=== PATIENT | male | born 1945 | race Caucasian/White ===

== ENCOUNTER 2017-08-01 10:01 | Inpatient (IN) ==
[2017-08-01] MEDS ORDERED: CeFAZolin Syr 2,000MG/20 ML 2,000 MG/20 ML SYRINGE IVPB ONE (10:17)
[2017-08-01] MEDS ORDERED: Plasma-Lyte A (PH 7.4) 1,000 ML IVC SCH (10:30)
[2017-08-01] MEDS ORDERED: *HR* Propofol 200 MG/20 ML VIAL IVP ONE (11:24)
[2017-08-01] MEDS ORDERED: *HR* FentaNYL (PF) 100 MCG/2 ML VIAL ONE (11:24)
[2017-08-01] MEDS ORDERED: Ondansetron 4 MG/2 ML VIAL ONE (11:24)
[2017-08-01] MEDS ORDERED: *HR* Succinylcholine 200 MG/10 ML VIAL IVP ONE (11:24)
[2017-08-01] MEDS ORDERED: Lidocaine -MPF 2% 2 ML VIAL ONE (11:24)
--- NOTE | 2017-08-01 11:29 | Anesthesia Evaluation PreOp ---
Date of Encounter: 08/01/17 Time of Encounter: 11:27 - Past History Planned Operation: R total shoulder replacement Cardiac History: HTN, Hyperlipidemia, Cardiac Stent (CAD s/p stent 2006) Pulmonary History: LÓPEZ Dx CASTING MACHINE SET UP OPERATOR History: Denies Any Significant HX Other Medical History: Diabetes Type II Anesthesia History: No Prior Anesthetic Complications, Past Anesthesia Alcohol Use: rarely Drug use: none Medications and Allergies Allopurinol [Zyloprim 300 MG] 1 mg PO DAILY 08/01/17 [History] Amlodipine Besylate/Benazepril [Lotrel 10-20 mg Capsule] 1 each PO DAILY [History] Cyanocobalamin (Vitamin B-12) [Vitamin B12] 100 mcg PO DAILY 08/01/17 [History] Imipramine HCl [Tofranil] 25 mg PO HS 08/01/17 [History] Latanoprost [Xalatan] 1 drop LEFT EYE DAILY 08/01/17 [History] Loratadine [Claritin] 10 mg PO DAILY 08/01/17 [History] Loratadine [Claritin] 10 mg PO DAILY 08/01/17 [History] Metformin HCl [Fortamet] 1,000 mg PO BID 08/01/17 [History] Multivit-Min/FA/Lycopen/Lutein [Adults 50+ Multivitamin Tablet] 1 each PO DAILY 08/01/17 [History] Naproxen Sodium [Aleve] 220 mg PO 08/01/17 [History] Potassium Chloride [Klor-Con] 20 meq PO DAILY 08/01/17 [History] Triamterene/HCTZ 37.5/25mg [Dyazide] 1 tab PO DAILY 08/01/17 [History] 3 Allergy/AdvReac Type Severity Reaction Status Date / Time atorvastatin Allergy See Verified 08/01/17 10:23 Comments ezetimibe [From Zetia] Allergy See Verified 08/01/17 10:23 Comments - Meds/Allergy Pre-op Review Medications Reviewed: Yes Allergies Reviewed: Yes Beta Blockers on Current Med List: No Anesthesia Results - Labs Laboratory Tests 07/22/17 07/22/17 07/22/17 12:30 12:30 12:30 WBC 6.2 Hgb 13.6 Hct 41.3 Plt Count 242 PT 11.2 INR 1.0 APTT 30.5 Sodium 138 Potassium 4.4 Chloride 105 Carbon Dioxide 22 BUN 27 H Creatinine 1.02 Est Mean Plasma Glucose Hemoglobin A1c 07/22/17 12:30 WBC Hgb Hct Plt Count PT INR APTT Sodium Potassium Chloride Carbon Dioxide BUN Creatinine Est Mean Plasma Glucose 126 Hemoglobin A1c 6.0 H - Imaging EKG: report reviewed (SR) Anesthesia Exam O2 Sat Height 1.74 m Height 1.74 m Weight 102.058 kg Weight 102.058 kg O2 Sat by Pulse Oximetry 96 Vital Signs Temp Pulse Resp BP Pulse Ox 98.6 F 88 20 137/84 96 08/01/17 10:28 08/01/17 10:28 08/01/17 10:28 08/01/17 10:28 08/01/17 10:28 Blood glucose: 131 Height: 1.74m Weight: 102kg NPO (# of Hours): >8 - HEENT Pupil (Motor): Pupils equal, EOMI Denture Type: Upper: Complete Oral Opening: Greater than 3 - CASTING MACHINE SET UP OPERATOR LOC: Oriented CASTING MACHINE SET UP OPERATOR Motor: Normal RUE, Normal LUE, Normal RLE, Normal LLE, Normal Face CASTING MACHINE SET UP OPERATOR Sensory: Normal: RUE, LUE, RLE, LLE, Face - Cardiac Rhythm: Regular - Pulmonary Breath Sounds: bilateral Clear Respiratory Effort: Symmetrical Anesthesia Assess/Plan ASA Score: 3 Modified Jhoan Scale for Level of Consciousness: Cooperative, oriented, and tranquil Anesthetic Plan: General (r/b/a discussed, questions answered, consent obtained) , Regional (R brachial plexus) Monitoring Plan: Standard Monitors Recovery Plan: PACU
--- NOTE | 2017-08-01 12:11 | History & Physical Report ---
Date of Encounter: 08/01/17 Time of Encounter: 12:11 24 Hour HP Update - Instructions Instructions: If the History and Physical is less than 30 days old and was completed prior to A.M. admission and or procedure and has NOT been updated on calendar day of procedure please complete this update prior to performing procedure. - Update Patient reports changes in Medical Condition: No Changes in examination, assessment, or condition: No Changes in Medication: No Preop tests/diagnostics Reviewed: Yes Surgery Remains Indicated: Yes Consent for Planned Operative Procedure(s) Verified: Yes - Pre-Operative Checklist Preoperative Checklist Indicated: No Prophylactic Antibiotic Ordered: Yes Is VTE Prophylaxis Indicated?: Yes
--- NOTE | 2017-08-01 12:22 | Discharge Summary ---
Date of Encounter: 08/01/17 - Discharge Diagnosis (1) Hypertension Priority: Secondary Status: Chronic Qualifiers: Hypertension type: unspecified Qualified Code(s): I10 - Essential (primary ) hypertension (2) Hyperlipidemia Priority: Secondary Status: Chronic Qualifiers: Hyperlipidemia type: unspecified Qualified Code(s): E78.5 - Hyperlipidemia , unspecified (3) Coronary artery disease Priority: Secondary Status: Chronic Qualifiers: Coronary Disease-Associated Artery/Lesion type: unspecified vessel or lesion type [place] vs. transplanted heart: [place] heart Associated angina: angina presence unspecified Qualified Code(s): I25.10 - Atherosclerotic heart disease of [place] coronary artery without angina pectoris (4) Obstructive sleep apnea Priority: Secondary Status: Chronic (5) Obesity (BMI 30.0-34.9) Priority: Secondary Status: Chronic (6) Rotator cuff tear arthropathy of right shoulder Priority: Primary Status: Chronic (7) Status post total replacement of right shoulder Priority: Primary Status: Acute (8) Type 2 diabetes mellitus Status: Acute Qualifiers: Diabetes mellitus complication status: without complication Diabetes mellitus intermediate manager insulin use: unspecified intermediate manager insulin use status Qualified Code(s): E11.9 - Type 2 diabetes mellitus without complications - Discharge Medications Home Medications: Allopurinol [Zyloprim 300 MG] 1 mg PO DAILY 08/01/17 [History] Amlodipine Besylate/Benazepril [Lotrel 10-20 mg Capsule] 1 each PO DAILY [History] Cyanocobalamin (Vitamin B-12) [Vitamin B12] 100 mcg PO DAILY 08/01/17 [History] Imipramine HCl [Tofranil] 25 mg PO HS 08/01/17 [History] Latanoprost [Xalatan] 1 drop LEFT EYE DAILY 08/01/17 [History] Loratadine [Claritin] 10 mg PO DAILY 08/01/17 [History] Loratadine [Claritin] 10 mg PO DAILY 08/01/17 [History] Metformin HCl [Fortamet] 1,000 mg PO BID 08/01/17 [History] Multivit-Min/FA/Lycopen/Lutein [Adults 50+ Multivitamin Tablet] 1 each PO DAILY 08/01/17 [History] Naproxen Sodium [Aleve] 220 mg PO 08/01/17 [History] Potassium Chloride [Klor-Con] 20 meq PO DAILY 08/01/17 [History] Triamterene/HCTZ 37.5/25mg [Dyazide] 1 tab PO DAILY 08/01/17 [History] Allergies/Adverse Reactions: 3 Allergy/AdvReac Type Severity Reaction Status Date / Time atorvastatin Allergy See Verified 08/01/17 10:23 Comments ezetimibe [From Zetia] Allergy See Verified 08/01/17 10:23 Comments Primary care physician: Amber Mccallum, - Discharge Instructions Follow Up With: Amber Mccallum MD [Primary Care Provider] - - Hospital Course Hospital course: Mr. Madrigal is a 71 year old male - Time Spent with Patient Total time spent providing and/or coordinating discharge services:
[2017-08-01] MEDS ORDERED: ROPIVACAINE HCL/PF 0.5% 30 ML VIAL ONE (12:33)
[2017-08-01] MEDS ORDERED: *HR* Midazolam HCl 2 MG/2 ML VIAL ONE (12:35)
[2017-08-01] MEDS ORDERED: Dexamethasone 4 MG/ML VIAL ONE (12:49)
[2017-08-01] MEDS ORDERED: *HR* Labetalol 20 MG/4 ML SYRINGE IVP PRN (13:06)
[2017-08-01] MEDS ORDERED: *HR* Promethazine 25 MG/ML VIAL IVP PRN (13:06)
[2017-08-01] MEDS ORDERED: *HR* HYDROmorphone (PF) 1 MG/ML SYRINGE IVP PRN ×2 (13:06→15:28)
--- NOTE | 2017-08-01 13:12 | Anesthesia Procedures ---
Date of Encounter: 08/01/17 Time of Encounter: 13:11 Procedures: Anesthesia - Nerve Block Procedure Date: 08/01/17 Time: 12:42 Allergies/Adv Reactions: Allergies Allergy/AdvReac Type Severity Reaction Status Date / Time atorvastatin Allergy See Verified 08/01/17 10:23 Comments ezetimibe [From Zetia] Allergy See Verified 08/01/17 10:23 Comments Pre-op Diagnosis: See surgical consent Surgical Procedure: R total shoulder supraclavicular nn bloc Checklist: Correct Patient Identifier, Correct procedure, History checked Correct side: Right Blood Thinner: No Monitor Applied: EKG, BP, Pulse Oximetry, Other Supplemental Oxygen via Nasal Cannula (L/min): 2 Sedation: Versed (mg): 2 Indication: Post Op Analgesia (per surgeon's request) Pre-op Neuro Deficits: No Block Type: Supraclavicular Catheter placed: No Sterile Technique: Yes Ultrasound used: Yes Anatomy identified: Yes Visual spread of Local: Yes Neuro Stimulation: No Blood on Needle Aspiration: No Smooth Injection of Local: Yes Pain with Injection of Local: No Prep: Chlorhexadine Needle: 22 x 50 mm Stimuplex Local: Ropivacaine (0.5%) Volume (cc): 30 Number of Attempts: 1 Complications: None/effective block Vitals: see nursing notes
--- NOTE | 2017-08-01 14:08 | Orthopedic Operative Note ---
Date of procedure: 08/01/17 Pre-op diagnosis: Right shoulder cuff tear arthropathy Post-op diagnosis: same Procedure: Procedure: Total Shoulder Replacment Reverse, right Estimated blood loss: 200 cc Hardware: Metal and polyethylene replacement: Arthrex large glenoid baseplate, 2 4.5 screws. 1 6.5 screw, 42+4 glenosphere, 10 humeral stem, poly 3 insert a 12 metal Exam Under anesthesia: Full motion no instability Procedural Notes: Irreparable tear supraspinatus tendon grade 4 arthritic changes humeral head glenoid socket. Operative procedure: The patient was brought to the operating room and placed on the operating room table. After general anesthesia was administered the operative shoulder was examined. Findings were noted. The patient was placed in the modified beachchair position. All pressure points were padded appropriately. And the head was stabilized in the neutral position. The operative extremity was prepped and draped in the sterile surgical fashion. The patient received IV antibiotics prior to skin incision. A standard deltopectoral approach was made to the operative shoulder. Incision was made to the skin and subcutaneous tissue,hemo stasis was obtained with Bovie cautery. Using careful blunt dissection the cephalic vein was identified and mobilized medially. The deltopectoral interval was developed and the clavipectoral fascia was incised. The subscap was released off the lesser tuberosity and tagged with #2 FiberWire suture subscap was irreparable.. The humerus was dislocated patient noted to have irreparable tear supraspinatus tendon, and the humeral cut was made along the anatomic neck. Patient noted to have grade 4 arthritic changes humeral head. Anterior and posterior Bankart retractors were placed to expose the glenoid. Patient noted to have grade 4 arthritic changes glenoid socket. The glenoid guide was seated and the centering hole was made. It was reamed with the appropriate reamer. The large baseplate was seated and secured with (2) 4.5 screws and one 6.5 screw. The baseplate was irrigated and dried and the 42+4 Glenosphere was seated and secured with the Fuentes taper. The Fuentes taper was tested and found to be secure the humerus was redislocated and prepared with the diaphyseal reamers, followed by a broaching process up to the appropriate size 10 in the patient's anatomic version. The metaphyseal reamer was then utilized. Trial reduction found the shoulder to be relocatable. Trial components were removed and The appropriate 10 stem was impacted in place in the patient's anatomic version. Trial reduction found the shoulder to be relocatable and stable with the appropriate 12 metal 3 Denise Trial component was removed and the real components was seated and secured the shoulder was reduced. The shoulder had excellent motion and excellent stability and no evidence of dislocation. The deep tissue was irrigated with pulse irrigation. The deltopectoral interval was closed with a running #1 PDS suture, subcutaneous tissue was irrigated and closed with 0 PDS suture, the skin was closed with Zip tie. The patient was placed in a sterile dressing, abduction brace and extubated. The patient was then transferred to the recovery room in stable condition. Anesthesia: GETA Surgeon: Jonathan Perez Condition: stable Disposition: PACU
--- NOTE | 2017-08-01 14:43 | Anesthesia Evaluation Post Op ---
Date of Encounter: 08/01/17 Time of Encounter: 14:40 - Vital Signs Vital Signs: Vital Signs/O2 Sat/Glucose, Most Current Temp Pulse Resp BP Pulse Ox 08/01/17 14:38 85 16 132/82 95 08/01/17 14:28 88 16 131/82 98 08/01/17 14:18 98.2 F 92 14 127/83 98 08/01/17 12:47 76 16 127/72 96 08/01/17 12:37 79 16 139/83 98 - Lungs Lungs: Clear Ascult./Percussion - Airway Airway: Non-obstructed - Cardiovascular Regular Rate, Baseline Rhythm - Mental Status Mental Status: Alert & Oriented, Answers Appropriately - Pain Pain Scale: 0 Pain Scale used: Numeric (1 - 10) - Nausea Vomiting Nausea Vomiting: Not Present - Hydration Hydration: Ice chips, Has not voided - Discharge PostOp Status: Transfer Patient to floor
[2017-08-01] MEDS ORDERED: Ringers Solution, Lactated 1,000 ML IVC SCH (15:28)
[2017-08-01] MEDS ORDERED: Naloxone 0.4 MG/ML INJ IVP PRN (15:28)
[2017-08-01] MEDS ORDERED: Temazepam 15 MG CAPSULE PO PRN (15:28)
[2017-08-01] MEDS ORDERED: *HR* Dextrose 50 % in Water (Syg) 50 ML SYRINGE IVP PRN (15:28)
[2017-08-01] MEDS ORDERED: MOM Conc 10 ML UD.LIQ PO PRN (15:28)
[2017-08-01] MEDS ORDERED: *HR* OxyCODONE Immed Rel 5 MG TABLET PO PRN ×2 (15:28)
[2017-08-01] MEDS ORDERED: D5% in Water 1,000 ML IVC PRN (15:28)
[2017-08-01] MEDS ORDERED: Sennosides 8.6 MG TABLET PO PRN (15:28)
[2017-08-01] MEDS ORDERED: Dextrose Gel 15 GM PO PRN ×2 (15:28)
[2017-08-01] MEDS ORDERED: Ondansetron 4 MG/2 ML VIAL IVP PRN (15:28)
[2017-08-01] MEDS ORDERED: Insulin LISPRO 300 UNITS/3 ML VIAL SQ SCH ×2 (16:30→21:00)
[2017-08-01] MEDS ORDERED: CeFAZolin Premix DUPLEX 2,000 MG/50 ML BAG IVPB SCH (17:00)
[2017-08-01 17:32] VITALS: BP 136/85
[2017-08-01] MEDS ORDERED: *HR* Enoxaparin 30 MG/0.3 ML SYRINGE SQ SCH ×2 (18:00)
[2017-08-01] MEDS ORDERED: *HR* Metformin 500 MG TABLET PO SCH (21:00)
[2017-08-02] MEDS ORDERED: Loratadine 10 MG TABLET PO SCH (09:00)
[2017-08-02] MEDS ORDERED: amLODIPine 5 MG TABLET PO SCH (09:00)
[2017-08-02] MEDS ORDERED: Lisinopril 20 MG TABLET PO SCH (09:00)
[2017-08-02] MEDS ORDERED: Latanoprost 2.5 ML BOTTLE LEFT EYE SCH (09:00)
[2017-08-02] MEDS ORDERED: NON-FORMULARY MEDICATION 1 EACH EACH (Loratadine [Claritin] 10 MG) PO SCH (09:00)
[2017-08-02] MEDS ORDERED: Multivit/Ca/Min/Fe/FA 1 TAB TABLET PO SCH (09:00)
== END 2017-08-01 19:53 | disposition home or self-care (01) | DRG 483 ==
LOC: SAMDAY 10:01 → 3NENU 15:36
PROVIDERS: ADMIT Orthopaedic Surgery; ATTEND Orthopaedic Surgery

== ENCOUNTER 2020-09-22 13:06 | Inpatient (IN) ==
[2020-09-22] MEDS ORDERED: Aspirin 325 MG TABLET PO ONE (13:37)
[2020-09-22 14:33] LABS: Basophils % 0.5 %; Eosinophils # 0.3 K/mcL (0.0-0.6); Eosinophils % 3.5 %; Hematocrit 35.2 % (37.5-50.1); Hemoglobin 11.2 g/dL (12.9-16.9); Immature Granulocytes % 0.2 % (0-4); Lymphocytes # 2.1 K/mcL (0.6-4.6); Lymphocytes % 25.6 %; Mean Corpuscular HGB Conc 31.8 g/dL (31.6-35.5); Mean Corpuscular Hemoglobin 28.9 pg (28.0-33.3); Mean Corpuscular Volume 90.7 fL (83.0-100.0); Mean Platelet Volume 11.3 fL (9.4-12.4); Monocytes # 0.4 K/mcL (0.0-1.3); Monocytes % 4.7 %; Neutrophils # 5.3 K/mcL (1.6-8.9); Platelet Count 336 K/mcL (140-400); Red Blood Count 3.88 M/mcL (4.19-5.50); Red Cell Distribution Width 15.8 % (11.5-14.5); Segmented Neutrophils % 65.5 %; White Blood Count 8.1 K/mcL (4.3-11.1)
[2020-09-22 14:58] LABS: BUN/Creatinine Ratio 22 (6-26); Blood Urea Nitrogen 18 mg/dL (8-23); Calcium 9.5 mg/dL (8.6-10.3); Carbon Dioxide 27 mEq/L (23-29); Chloride 102 mEq/L (98-107); Glucose 114 mg/dL (70-105); Osmolality,Calculated 285 (280-300); Potassium 4.5 mEq/L (3.5-5.1); Sodium 136 mEq/L (136-145); eGFR For African Americans > 60 (> 60); eGFR For Non-African Americans > 60 (> 60)
[2020-09-22 15:04] LABS: Troponin I 0.09 ng/mL (< 0.04)
[2020-09-22] MEDS ORDERED: *HR* Heparin 5,000 UNIT/ML VIAL IVP PRN ×2 (15:19)
[2020-09-22] MEDS ORDERED: *HR* Heparin 5,000 UNIT/ML VIAL IVP ONE (15:19)
[2020-09-22] MEDS ORDERED: Naloxone 0.4 MG/ML INJ IVP PRN (15:28)
[2020-09-22] MEDS: Heparin 25,000UNIT/250ML 1/2NS 25,000 UNIT/250 ML IV.SOLN IVC SCH (15:44)
[2020-09-22] MEDS ORDERED: Dextrose Gel 15 GM/37.5 ML TUBE PO PRN ×2 (16:46)
[2020-09-22] MEDS ORDERED: *HR* Dextrose 50 % in Water (Vial) 50 ML VIAL IVP PRN (16:46)
[2020-09-22] MEDS ORDERED: D5% in Water 1,000 ML IVC PRN (16:46)
[2020-09-22 17:10] LABS: Heparin anti-factor XA UFH 0.93 IU/mL (0.30-0.70); INR 1.2; Prothrombin Time 13.4 Seconds (9.4-12.1)
[2020-09-22] MEDS: Insulin LISPRO 300 UNITS/3 ML VIAL SUBQ SCH (21:09)
[2020-09-23 01:42] LABS: Basophils # 0.1 K/mcL (0.0-0.2); Eosinophils # 0.3 K/mcL (0.0-0.6); Eosinophils % 5.5 %; Hematocrit 31.1 % (37.5-50.1); Immature Granulocytes % 0.2 % (0-4); Lymphocytes # 1.8 K/mcL (0.6-4.6); Lymphocytes % 35.2 %; Mean Corpuscular HGB Conc 32.2 g/dL (31.6-35.5); Mean Corpuscular Hemoglobin 28.7 pg (28.0-33.3); Mean Corpuscular Volume 89.4 fL (83.0-100.0); Monocytes # 0.3 K/mcL (0.0-1.3); Monocytes % 5.5 %; Neutrophils # 2.7 K/mcL (1.6-8.9); Platelet Count 282 K/mcL (140-400); Red Blood Count 3.48 M/mcL (4.19-5.50); Segmented Neutrophils % 52.6 %; White Blood Count 5.1 K/mcL (4.3-11.1)
[2020-09-23 01:57] LABS: BUN/Creatinine Ratio 22 (6-26); Blood Urea Nitrogen 18 mg/dL (8-23); Carbon Dioxide 26 mEq/L (23-29); Chloride 102 mEq/L (98-107); Glucose 102 mg/dL (70-105); Osmolality,Calculated 284 (280-300); Potassium 3.8 mEq/L (3.5-5.1); Sodium 136 mEq/L (136-145); eGFR For African Americans > 60 (> 60); eGFR For Non-African Americans > 60 (> 60)
[2020-09-23] MEDS ORDERED: Perflutren Lipid Microsphere 1.3 ML in 0.9 % Sodium Chloride 8.7 ML IVP PRN (05:49)
[2020-09-23] MEDS ORDERED: NON-FORMULARY MEDICATION 1 EACH EACH (Amlodipine Besylate/Benazepril [Lotrel 10-20 Mg Caps PO SCH (09:00)
[2020-09-23] MEDS ORDERED: amLODIPine 5 MG TABLET PO SCH (09:00)
[2020-09-23] MEDS: lisinopriL 20 MG TABLET PO SCH (09:20)
[2020-09-23] MEDS: Aspirin Enteric Coated 81 MG Tablet PO SCH (09:20)
[2020-09-23] MEDS: Latanoprost 2.5 ML BOTTLE LEFT EYE SCH (09:21)
[2020-09-23] MEDS: allopurinoL 300 MG TABLET PO SCH (09:21)
[2020-09-23] MEDS: Insulin LISPRO 300 UNITS/3 ML VIAL SUBQ SCH ×4 (09:22→21:57)
[2020-09-23] MEDS: Heparin 25,000UNIT/250ML 1/2NS 25,000 UNIT/250 ML IV.SOLN IVC SCH (22:01)
[2020-09-24 05:10] LABS: Basophils # 0.1 K/mcL (0.0-0.2); Basophils % 0.7 %; Eosinophils # 0.3 K/mcL (0.0-0.6); Eosinophils % 3.9 %; Hemoglobin 10.3 g/dL (12.9-16.9); Immature Granulocytes % 0.3 % (0-4); Lymphocytes % 27.8 %; Mean Corpuscular HGB Conc 32.2 g/dL (31.6-35.5); Mean Corpuscular Hemoglobin 28.9 pg (28.0-33.3); Mean Corpuscular Volume 89.9 fL (83.0-100.0); Mean Platelet Volume 10.9 fL (9.4-12.4); Monocytes # 0.5 K/mcL (0.0-1.3); Monocytes % 6.6 %; Neutrophils # 4.3 K/mcL (1.6-8.9); Platelet Count 304 K/mcL (140-400); Red Blood Count 3.56 M/mcL (4.19-5.50); Red Cell Distribution Width 15.9 % (11.5-14.5); Segmented Neutrophils % 60.7 %; White Blood Count 7.1 K/mcL (4.3-11.1)
[2020-09-24 05:28] LABS: BUN/Creatinine Ratio 28 (6-26); Blood Urea Nitrogen 27 mg/dL (8-23); Calcium 8.9 mg/dL (8.6-10.3); Carbon Dioxide 26 mEq/L (23-29); Chloride 103 mEq/L (98-107); Glucose 116 mg/dL (70-105); Osmolality,Calculated 288 (280-300); Potassium 3.9 mEq/L (3.5-5.1); Sodium 136 mEq/L (136-145); eGFR For African Americans > 60 (> 60); eGFR For Non-African Americans > 60 (> 60)
[2020-09-24] MEDS: Insulin LISPRO 300 UNITS/3 ML VIAL SUBQ SCH ×4 (08:03→20:28)
[2020-09-24] MEDS: Aspirin Enteric Coated 81 MG Tablet PO SCH (09:07)
[2020-09-24] MEDS: lisinopriL 20 MG TABLET PO SCH (09:07)
[2020-09-24] MEDS: allopurinoL 300 MG TABLET PO SCH (09:07)
[2020-09-24] MEDS: Latanoprost 2.5 ML BOTTLE LEFT EYE SCH (09:10)
[2020-09-24] MEDS ORDERED: 0.9 % Sodium Chloride 1,000 ML ONE ×2 (12:44→12:47)
[2020-09-24] MEDS ORDERED: *HR* Midazolam HCl 2 MG/2 ML VIAL ONE (12:44)
[2020-09-24] MEDS ORDERED: *HR* FentaNYL (PF) 100 MCG/2 ML VIAL ONE (12:44)
[2020-09-24] MEDS ORDERED: Nitroglycerin 1,000 MCG/10 ML VIAL IV ONE (12:45)
[2020-09-24] MEDS ORDERED: *HR* Heparin 10,000 UNIT/10 ML VIAL ONE (12:45)
[2020-09-24] MEDS ORDERED: ISOVUE-370 200 ML INFUS..BTL ONE (12:45)
[2020-09-24] MEDS ORDERED: Heparin 1,000 UNITS/500 mL 500 ML ONE (12:45)
[2020-09-24] MEDS: Heparin 25,000UNIT/250ML 1/2NS 25,000 UNIT/250 ML IV.SOLN IVC SCH (17:23)
[2020-09-24 17:38] LABS: Estimated Average Glucose 105 mg/dl; Hemoglobin A1C 5.3 %
[2020-09-24 17:47] LABS: Chol/HDL Ratio 5.7 (0-4.9)
[2020-09-24 19:29] LABS: Adenovirus Not Detected (Not Detect); Bordetella Pertussis Not Detected (Not Detect); Chlamydophila pneumoniae Not Detected (Not Detect); Coronavirus 229E Not Detected (Not Detect); Coronavirus HKU1 Not Detected (Not Detect); Coronavirus NL63 Not Detected (Not Detect); Coronavirus OC43 Not Detected (Not Detect); Human Metapneumovirus Not Detected (Not Detect); Human Rhinovirus/Enterovirus Not Detected (Not Detect); Influenza A Subtype 2009 H1 Not Detected (Not Detect); Influenza B Not Detected (Not Detect); Mycoplasma pneumoniae Not Detected (Not Detect); Parainfluenza Virus 1 Not Detected (Not Detect); Parainfluenza Virus 2 Not Detected (Not Detect); Parainfluenza Virus 3 Not Detected (Not Detect); Parainfluenza Virus 4 Not Detected (Not Detect); Respiratory Syncytial Virus Not Detected (Not Detect); SARS-CoV-2 Not Detected (Not Detect)
[2020-09-24] MEDS: Ipratropium/Albuterol Neb 3 ML IH SCH (20:14)
[2020-09-24] MEDS: Chlorhexidine Rinse 15 ML MOUTHWASH MM SCH (20:21)
[2020-09-24] MEDS: Budesonide Neb 0.5 MG/2 ML IH SCH (21:27)
[2020-09-25] MEDS: Ipratropium/Albuterol Neb 3 ML IH SCH ×2 (02:53→09:31)
[2020-09-25] MEDS ORDERED: Ipratropium/Albuterol Neb 3 ML ONE (02:53)
[2020-09-25 04:07] LABS: Basophils % 0.5 %; Eosinophils # 0.3 K/mcL (0.0-0.6); Eosinophils % 3.4 %; Hematocrit 32.3 % (37.5-50.1); Hemoglobin 10.3 g/dL (12.9-16.9); Immature Granulocytes % 0.2 % (0-4); Lymphocytes # 2.6 K/mcL (0.6-4.6); Lymphocytes % 30.9 %; Mean Corpuscular HGB Conc 31.9 g/dL (31.6-35.5); Mean Corpuscular Hemoglobin 28.5 pg (28.0-33.3); Mean Corpuscular Volume 89.5 fL (83.0-100.0); Mean Platelet Volume 10.9 fL (9.4-12.4); Monocytes # 0.5 K/mcL (0.0-1.3); Monocytes % 5.4 %; Neutrophils # 4.9 K/mcL (1.6-8.9); Platelet Count 297 K/mcL (140-400); Red Blood Count 3.61 M/mcL (4.19-5.50); Red Cell Distribution Width 15.9 % (11.5-14.5); Segmented Neutrophils % 59.6 %; White Blood Count 8.3 K/mcL (4.3-11.1)
[2020-09-25 04:20] LABS: BUN/Creatinine Ratio 25 (6-26); Blood Urea Nitrogen 28 mg/dL (8-23); Calcium 9.3 mg/dL (8.6-10.3); Carbon Dioxide 24 mEq/L (23-29); Chloride 102 mEq/L (98-107); Glucose 114 mg/dL (70-105); Osmolality,Calculated 286 (280-300); Potassium 4.2 mEq/L (3.5-5.1); Sodium 135 mEq/L (136-145); eGFR For African Americans > 60 (> 60); eGFR For Non-African Americans > 60 (> 60)
[2020-09-25] MEDS ORDERED: Aspirin 81 MG TAB.CHEW PO ONE (06:00)
[2020-09-25] MEDS ORDERED: *HR* Midazolam HCl 5 MG/5 ML VIAL IVP ONE (06:52)
[2020-09-25] MEDS ORDERED: *HR* FentaNYL (PF) 1,000 MCG/20 ML VIAL ONE (06:52)
[2020-09-25] MEDS ORDERED: *HR* PHENYLEPHRINE 1,000 MCG/10 ML SYRINGE IVP ONE ×2 (06:53→12:55)
[2020-09-25] MEDS ORDERED: *HR* Rocuronium Bromide 50 MG/5 ML VIAL ONE (06:53)
[2020-09-25] MEDS ORDERED: Famotidine 20 MG/2 ML VIAL ONE (06:54)
[2020-09-25] MEDS ORDERED: *HR* Etomidate 20 MG/10 ML AMPUL IVP ONE (06:54)
[2020-09-25] MEDS ORDERED: EPINEPHrine 1 MG/ML VIAL ONE (06:54)
[2020-09-25] MEDS ORDERED: Protamine Sulfate 250 MG/25 ML VIAL IVP ONE (06:56)
[2020-09-25] MEDS ORDERED: Calcium Gluconate 1,000 MG/10 ML VIAL ONE (06:56)
[2020-09-25] MEDS ORDERED: Tranexamic Acid 1,000 MG/10 ML VIAL ONE ×2 (06:56→12:57)
[2020-09-25] MEDS ORDERED: NiCARdipine 2.5 MG/10 ML Syringe IVPB ONE (08:22)
[2020-09-25] MEDS ORDERED: Latanoprost 2.5 ML BOTTLE BOTH EYES SCH (09:00)
[2020-09-25] MEDS: Finasteride 5 MG TABLET PO SCH (09:08)
[2020-09-25] MEDS: Chlorhexidine Rinse 15 ML MOUTHWASH MM SCH ×2 (09:08→19:47)
[2020-09-25] MEDS: allopurinoL 300 MG TABLET PO SCH (09:08)
[2020-09-25] MEDS: Insulin LISPRO 300 UNITS/3 ML VIAL SUBQ SCH ×4 (09:08→19:38)
[2020-09-25] MEDS: TADALAFIL 6 MG PO SCH (09:09)
[2020-09-25] MEDS: lisinopriL 20 MG TABLET PO SCH (09:10)
[2020-09-25] MEDS: Budesonide Neb 0.5 MG/2 ML IH SCH ×2 (09:31→23:01)
[2020-09-25] MEDS ORDERED: Dextrose 50 % in Water (Vial) 30 ML, Sodium Bicarbonate 20 MEQ, Potassium Chloride 15 M... TH ONE (10:30)
[2020-09-25] MEDS ORDERED: Dextrose 50 % in Water (Vial) 30 ML, Sodium Bicarbonate 20 MEQ, Lidocaine 1% 5 ML, Insu... TH ONE ×3 (10:30)
[2020-09-25] MEDS ORDERED: Heparin 15,000 UNIT in 0.9 % Sodium Chloride 500 ML IV ONE (10:30)
[2020-09-25] MEDS ORDERED: Insulin Human Regular 100 UNIT in 0.9 % Sodium Chloride 100 ML IV PRN (10:30)
[2020-09-25] MEDS ORDERED: Norepinephrine 4 MG in 0.9 % Sodium Chloride 250 ML IVC PRN (10:30)
[2020-09-25] MEDS ORDERED: CeFAZolin Syr 2,000MG/20 ML 2,000 MG/20 ML SYRINGE IVPB ONE (11:00)
[2020-09-25 11:30] LABS: ABG Base Excess 0 mEq/L (-2 to 3); ABG Chloride 103 mEq/L (98-107); ABG Glucose 105 mg/dL (60-95); ABG HCO3 27 mEq/L (21-27); ABG Ionized Calcium 1.26 mmol/L (1.15-1.35); ABG Oxygen Saturation 100 % (95-98); ABG PCO2 53 mmHg (35-45); ABG PH 7.31 pH Units (7.32-7.45); ABG PO2 233 mmHg (85-104); ABG TCO2 29 mEq/L (20-26)
[2020-09-25 12:58] LABS: ABG Base Excess -4 mEq/L (-2 to 3); ABG Chloride 111 mEq/L (98-107); ABG Glucose 123 mg/dL (60-95); ABG HCO3 21 mEq/L (21-27); ABG Ionized Calcium 0.85 mmol/L (1.15-1.35); ABG Oxygen Saturation 100 % (95-98); ABG PCO2 37 mmHg (35-45); ABG PH 7.36 pH Units (7.32-7.45); ABG PO2 220 mmHg (85-104); ABG TCO2 22 mEq/L (20-26)
[2020-09-25 13:20] LABS: ABG Base Excess -2 mEq/L (-2 to 3); ABG Chloride 98 mEq/L (98-107); ABG Glucose 158 mg/dL (60-95); ABG HCO3 23 mEq/L (21-27); ABG Ionized Calcium 1.02 mmol/L (1.15-1.35); ABG PCO2 37 mmHg (35-45); ABG PH 7.41 pH Units (7.32-7.45); ABG PO2 > 630 mmHg (85-104); ABG TCO2 24 mEq/L (20-26)
[2020-09-25 13:44] LABS: ABG Base Excess 0 mEq/L (-2 to 3); ABG Chloride 101 mEq/L (98-107); ABG Glucose 156 mg/dL (60-95); ABG HCO3 24 mEq/L (21-27); ABG Ionized Calcium 1.08 mmol/L (1.15-1.35); ABG PCO2 37 mmHg (35-45); ABG PH 7.42 pH Units (7.32-7.45); ABG PO2 > 630 mmHg (85-104); ABG TCO2 25 mEq/L (20-26)
[2020-09-25] MEDS ORDERED: Albumin Human 5% 12.5 GM/250 ML IV.SOLN ONE ×3 (13:48→14:49)
[2020-09-25 14:16] LABS: ABG Base Excess 0 mEq/L (-2 to 3); ABG Chloride 100 mEq/L (98-107); ABG Glucose 119 mg/dL (60-95); ABG HCO3 25 mEq/L (21-27); ABG Ionized Calcium 1.12 mmol/L (1.15-1.35); ABG Oxygen Saturation 100 % (95-98); ABG PCO2 38 mmHg (35-45); ABG PH 7.42 pH Units (7.32-7.45); ABG PO2 589 mmHg (85-104); ABG TCO2 26 mEq/L (20-26)
[2020-09-25 14:37] LABS: ABG Base Excess 0 mEq/L (-2 to 3); ABG Chloride 101 mEq/L (98-107); ABG Glucose 110 mg/dL (60-95); ABG HCO3 24 mEq/L (21-27); ABG Oxygen Saturation 100 % (95-98); ABG PCO2 39 mmHg (35-45); ABG PH 7.41 pH Units (7.32-7.45); ABG PO2 191 mmHg (85-104); ABG TCO2 26 mEq/L (20-26)
[2020-09-25] MEDS ORDERED: Insulin Regular, Human 100 UNIT/ML IV PRN (14:46)
[2020-09-25] MEDS ORDERED: *HR* Dextrose 50 % in Water (Vial) 50 ML VIAL IVP PRN (14:46)
[2020-09-25] MEDS ORDERED: Potassium Chloride 40 MEQ/200 ML BAG IVPB PRN (14:46)
[2020-09-25] MEDS ORDERED: Calcium Gluconate 1gm/50mL 1 GM/50 ML BAG IVPB PRN (14:48)
[2020-09-25] MEDS ORDERED: Albumin Human 5% 12.5 GM/250 ML IV.SOLN IVPB PRN (14:48)
[2020-09-25] MEDS ORDERED: Acetaminophen 325 MG TABLET PO PRN (14:48)
[2020-09-25] MEDS ORDERED: Ondansetron 4 MG/2 ML VIAL IVP PRN (14:48)
[2020-09-25] MEDS ORDERED: Acetaminophen 650 MG RECTAL SUPP RC PRN (14:48)
[2020-09-25] MEDS ORDERED: *HR* FentaNYL (PF) 100 MCG/2 ML VIAL IVP PRN (14:48)
[2020-09-25] MEDS ORDERED: niCARdipine 20 MG/200 ML MLS IVC ONE (14:50)
[2020-09-25] MEDS ORDERED: Norepinephrine 4 MG/254 ML IV.SOLN IVC SCH (15:00)
[2020-09-25] MEDS ORDERED: 0.9 % Sodium Chloride w KCl 20 MEQ/1,000 ML MLS IVC SCH (15:00)
[2020-09-25 15:43] LABS: Basophils % 0.2 %; Eosinophils # 0.4 K/mcL (0.0-0.6); Eosinophils % 3.3 %; Hematocrit 28.1 % (37.5-50.1); Immature Granulocytes % 0.6 % (0-4); Lymphocytes # 1.6 K/mcL (0.6-4.6); Lymphocytes % 12.8 %; Mean Corpuscular Volume 87.3 fL (83.0-100.0); Mean Platelet Volume 10.4 fL (9.4-12.4); Monocytes # 0.7 K/mcL (0.0-1.3); Monocytes % 5.8 %; Neutrophils # 9.6 K/mcL (1.6-8.9); Platelet Count 168 K/mcL (140-400); Red Blood Count 3.22 M/mcL (4.19-5.50); Red Cell Distribution Width 15.6 % (11.5-14.5); Segmented Neutrophils % 77.3 %
[2020-09-25 15:44] LABS: ABG Base Excess 0 mEq/L (-2 to 3); ABG HCO3 25 mEq/L (21-27); ABG Oxygen Saturation 100 % (95-98); ABG PCO2 38 mmHg (35-45); ABG PH 7.42 pH Units (7.32-7.45); ABG PO2 438 mmHg (85-104); ABG TCO2 26 mEq/L (20-26); Blood Gas VT 600 cc
[2020-09-25 15:47] LABS: White Blood Count 12.4 K/mcL (4.3-11.1)
[2020-09-25 15:56] LABS: INR 1.6; Prothrombin Time 17.9 Seconds (9.4-12.1)
[2020-09-25 15:59] LABS: Activated Partial Thrombo Time 31.8 Seconds (26.0-36.0); BUN/Creatinine Ratio 29 (6-26); Blood Urea Nitrogen 24 mg/dL (8-23); Calcium 9.4 mg/dL (8.6-10.3); Carbon Dioxide 24 mEq/L (23-29); Chloride 105 mEq/L (98-107); Glucose 83 mg/dL (70-105); Osmolality,Calculated 287 (280-300); Potassium 3.7 mEq/L (3.5-5.1); Sodium 137 mEq/L (136-145); eGFR For African Americans > 60 (> 60); eGFR For Non-African Americans > 60 (> 60)
[2020-09-25] MEDS: Metoclopramide 10 MG/2 ML VIAL IVP SCH (16:15)
[2020-09-25] MEDS: Pantoprazole 40 MG VIAL IVP SCH (18:06)
[2020-09-25] MEDS: *HR* OxyCODONE/APAP 5/325 TABLET PO PRN (18:07)
[2020-09-25] MEDS: niCARdipine 20 MG/200 ML MLS IVC SCH ×3 (19:31→23:58)
[2020-09-25] MEDS: Insulin Human Regular 100 UNIT in 0.9 % Sodium Chloride 100 ML IVC SCH ×2 (19:32→22:19)
[2020-09-25] MEDS: Heparin 25,000UNIT/250ML 1/2NS 25,000 UNIT/250 ML IV.SOLN IVC SCH (19:34)
[2020-09-25] MEDS: Furosemide 20 MG/2 ML VIAL IVP SCH (19:46)
[2020-09-25 19:48] LABS: ABG Base Excess -1 mEq/L (-2 to 3); ABG HCO3 24 mEq/L (21-27); ABG Oxygen Saturation 98 % (95-98); ABG PCO2 42 mmHg (35-45); ABG PH 7.37 pH Units (7.32-7.45); ABG PO2 107 mmHg (85-104); ABG TCO2 26 mEq/L (20-26); Blood Gas Modality CPAP/PS; Blood Gas Pressure Support 5 cm H2O
[2020-09-25] MEDS: CeFAZolin 2 GM/120 ML BAG IVPB SCH (19:49)
[2020-09-25 23:05] LABS: ABG Base Excess -1 mEq/L (-2 to 3); ABG HCO3 24 mEq/L (21-27); ABG Oxygen Saturation 97 % (95-98); ABG PCO2 40 mmHg (35-45); ABG PH 7.39 pH Units (7.32-7.45); ABG PO2 94 mmHg (85-104); ABG TCO2 25 mEq/L (20-26)
[2020-09-26] MEDS: Metoclopramide 10 MG/2 ML VIAL IVP SCH ×5 (00:09→23:24)
[2020-09-26] MEDS: niCARdipine 20 MG/200 ML MLS IVC SCH ×2 (02:46→03:29)
[2020-09-26 02:57] LABS: Basophils % 0.3 %; Eosinophils # 0.1 K/mcL (0.0-0.6); Eosinophils % 0.6 %; Hematocrit 29.3 % (37.5-50.1); Hemoglobin 9.4 g/dL (12.9-16.9); Immature Granulocytes % 0.2 % (0-4); Lymphocytes # 1.3 K/mcL (0.6-4.6); Lymphocytes % 14.2 %; Mean Corpuscular HGB Conc 32.1 g/dL (31.6-35.5); Mean Corpuscular Hemoglobin 28.1 pg (28.0-33.3); Mean Corpuscular Volume 87.7 fL (83.0-100.0); Mean Platelet Volume 10.5 fL (9.4-12.4); Monocytes # 0.5 K/mcL (0.0-1.3); Monocytes % 5.9 %; Neutrophils # 7.1 K/mcL (1.6-8.9); Platelet Count 187 K/mcL (140-400); Red Blood Count 3.34 M/mcL (4.19-5.50); Red Cell Distribution Width 16.1 % (11.5-14.5); Segmented Neutrophils % 78.8 %
[2020-09-26 03:01] LABS: INR 1.3; Prothrombin Time 15.4 Seconds (9.4-12.1)
[2020-09-26 03:04] LABS: Activated Partial Thrombo Time 29.3 Seconds (26.0-36.0)
[2020-09-26 03:17] LABS: BUN/Creatinine Ratio 24 (6-26); Blood Urea Nitrogen 23 mg/dL (8-23); Calcium 8.9 mg/dL (8.6-10.3); Carbon Dioxide 25 mEq/L (23-29); Chloride 105 mEq/L (98-107); Glucose 109 mg/dL (70-105); Magnesium 1.6 mg/dL (1.6-2.6); Osmolality,Calculated 290 (280-300); Potassium 4.1 mEq/L (3.5-5.1); Sodium 138 mEq/L (136-145); eGFR For African Americans > 60 (> 60); eGFR For Non-African Americans > 60 (> 60)
[2020-09-26] MEDS: CeFAZolin 2 GM/120 ML BAG IVPB SCH (03:28)
[2020-09-26] MEDS: Insulin LISPRO 300 UNITS/3 ML VIAL SUBQ SCH ×4 (03:30→21:37)
[2020-09-26] MEDS: *HR* OxyCODONE/APAP 5/325 TABLET PO PRN ×3 (04:00→23:30)
[2020-09-26] MEDS: Budesonide Neb 0.5 MG/2 ML IH SCH ×3 (07:43→19:59)
[2020-09-26] MEDS: Pantoprazole 40 MG VIAL IVP SCH (07:49)
[2020-09-26] MEDS: Chlorhexidine Rinse 15 ML MOUTHWASH MM SCH ×2 (07:49→21:35)
[2020-09-26] MEDS: Furosemide 20 MG/2 ML VIAL IVP SCH ×2 (07:49→17:05)
[2020-09-26] MEDS: Finasteride 5 MG TABLET PO SCH (07:50)
[2020-09-26] MEDS: allopurinoL 300 MG TABLET PO SCH (07:50)
[2020-09-26] MEDS: lisinopriL 20 MG TABLET PO SCH (07:50)
[2020-09-26] MEDS: TADALAFIL 6 MG PO SCH (07:51)
[2020-09-26] MEDS ORDERED: Aspirin Enteric Coated 81 MG Tablet PO SCH (09:00)
[2020-09-26] MEDS ORDERED: Naloxone 0.4 MG/ML INJ IVP PRN (09:36)
[2020-09-26] MEDS ORDERED: D5% in Water 1,000 ML IVC PRN (09:36)
[2020-09-26] MEDS ORDERED: Acetaminophen 325 MG TABLET PO PRN (09:36)
[2020-09-26] MEDS ORDERED: Dextrose Gel 15 GM/37.5 ML TUBE PO PRN ×4 (09:36)
[2020-09-26] MEDS ORDERED: *HR* FentaNYL (PF) 100 MCG/2 ML VIAL IVP PRN (09:36)
[2020-09-26] MEDS ORDERED: *HR* Dextrose 50 % in Water (Vial) 50 ML VIAL IVP PRN ×3 (09:36)
[2020-09-26] MEDS ORDERED: Ondansetron 4 MG/2 ML VIAL IVP PRN (09:36)
[2020-09-26] MEDS ORDERED: Insulin Human Regular 100 UNIT in 0.9 % Sodium Chloride 100 ML IVC SCH (09:36)
[2020-09-26] MEDS: *HR* Heparin 5,000 UNIT/ML VIAL SQ SCH ×2 (12:03→17:06)
[2020-09-26] MEDS: *HR* Metformin 500 MG TABLET PO SCH (17:05)
[2020-09-27 02:55] LABS: Basophils % 0.2 %; Eosinophils # 0.6 K/mcL (0.0-0.6); Eosinophils % 7.3 %; Hematocrit 28.6 % (37.5-50.1); Hemoglobin 9.2 g/dL (12.9-16.9); Immature Granulocytes % 0.3 % (0-4); Lymphocytes # 1.4 K/mcL (0.6-4.6); Lymphocytes % 16.7 %; Mean Corpuscular HGB Conc 32.2 g/dL (31.6-35.5); Mean Corpuscular Hemoglobin 29.1 pg (28.0-33.3); Mean Corpuscular Volume 90.5 fL (83.0-100.0); Mean Platelet Volume 10.9 fL (9.4-12.4); Monocytes # 0.7 K/mcL (0.0-1.3); Neutrophils # 5.8 K/mcL (1.6-8.9); Platelet Count 184 K/mcL (140-400); Red Blood Count 3.16 M/mcL (4.19-5.50); Red Cell Distribution Width 16.1 % (11.5-14.5); Segmented Neutrophils % 67.5 %; White Blood Count 8.6 K/mcL (4.3-11.1)
[2020-09-27 03:15] LABS: BUN/Creatinine Ratio 27 (6-26); Blood Urea Nitrogen 29 mg/dL (8-23); Calcium 8.8 mg/dL (8.6-10.3); Carbon Dioxide 25 mEq/L (23-29); Chloride 103 mEq/L (98-107); Glucose 119 mg/dL (70-105); Osmolality,Calculated 289 (280-300); Sodium 136 mEq/L (136-145); eGFR For African Americans > 60 (> 60); eGFR For Non-African Americans > 60 (> 60)
[2020-09-27] MEDS: *HR* Heparin 5,000 UNIT/ML VIAL SQ SCH ×2 (06:10→16:26)
[2020-09-27] MEDS: Metoclopramide 10 MG/2 ML VIAL IVP SCH ×3 (06:10→16:26)
[2020-09-27] MEDS: *HR* OxyCODONE/APAP 5/325 TABLET PO PRN ×2 (06:10→13:58)
[2020-09-27] MEDS: Insulin LISPRO 300 UNITS/3 ML VIAL SUBQ SCH ×4 (07:29→21:44)
[2020-09-27] MEDS: lisinopriL 20 MG TABLET PO SCH (07:36)
[2020-09-27] MEDS: allopurinoL 300 MG TABLET PO SCH (07:36)
[2020-09-27] MEDS: *HR* Metformin 500 MG TABLET PO SCH ×2 (07:36→16:26)
[2020-09-27] MEDS: Chlorhexidine Rinse 15 ML MOUTHWASH MM SCH ×2 (07:37→21:44)
[2020-09-27] MEDS: Aspirin Enteric Coated 81 MG Tablet PO SCH (07:37)
[2020-09-27] MEDS: Finasteride 5 MG TABLET PO SCH (07:37)
[2020-09-27] MEDS: Furosemide 20 MG/2 ML VIAL IVP SCH (07:37)
[2020-09-27] MEDS: Pantoprazole 40 MG VIAL IVP SCH (07:38)
[2020-09-27] MEDS: Latanoprost 2.5 ML BOTTLE BOTH EYES SCH (07:39)
[2020-09-27] MEDS: Budesonide Neb 0.5 MG/2 ML IH SCH ×2 (07:45→20:21)
[2020-09-28] MEDS: Metoclopramide 10 MG/2 ML VIAL IVP SCH ×4 (01:49→18:10)
[2020-09-28] MEDS: *HR* OxyCODONE/APAP 5/325 TABLET PO PRN ×2 (03:51→13:49)
[2020-09-28] MEDS: *HR* Heparin 5,000 UNIT/ML VIAL SQ SCH ×2 (06:16→18:10)
[2020-09-28] MEDS: Finasteride 5 MG TABLET PO SCH (07:25)
[2020-09-28] MEDS: *HR* Metformin 500 MG TABLET PO SCH ×2 (07:27→16:48)
[2020-09-28] MEDS: Aspirin Enteric Coated 81 MG Tablet PO SCH (07:27)
[2020-09-28] MEDS: lisinopriL 20 MG TABLET PO SCH (07:27)
[2020-09-28] MEDS: allopurinoL 300 MG TABLET PO SCH (07:28)
[2020-09-28] MEDS: Chlorhexidine Rinse 15 ML MOUTHWASH MM SCH ×2 (07:28→19:44)
[2020-09-28] MEDS: Pantoprazole 40 MG VIAL IVP SCH (07:28)
[2020-09-28] MEDS: Insulin LISPRO 300 UNITS/3 ML VIAL SUBQ SCH ×4 (07:29→19:57)
[2020-09-28] MEDS: Latanoprost 2.5 ML BOTTLE BOTH EYES SCH (07:30)
[2020-09-28] MEDS: Budesonide Neb 0.5 MG/2 ML IH SCH ×2 (07:51→19:52)
[2020-09-28 15:15] LABS: ABG Base Excess 1 mEq/L (-2 to 3); ABG HCO3 26 mEq/L (21-27); ABG Oxygen Saturation 96 % (95-98); ABG PCO2 44 mmHg (35-45); ABG PH 7.38 pH Units (7.32-7.45); ABG PO2 82 mmHg (85-104); ABG TCO2 27 mEq/L (20-26)
[2020-09-29] MEDS: *HR* OxyCODONE/APAP 5/325 TABLET PO PRN (05:14)
[2020-09-29] MEDS: *HR* Heparin 5,000 UNIT/ML VIAL SQ SCH ×2 (05:15→17:15)
[2020-09-29] MEDS: Budesonide Neb 0.5 MG/2 ML IH SCH ×2 (07:29→20:21)
[2020-09-29] MEDS: Finasteride 5 MG TABLET PO SCH (07:47)
[2020-09-29] MEDS: *HR* Metformin 500 MG TABLET PO SCH ×2 (07:47→17:14)
[2020-09-29] MEDS: allopurinoL 300 MG TABLET PO SCH (07:47)
[2020-09-29] MEDS: Chlorhexidine Rinse 15 ML MOUTHWASH MM SCH ×2 (07:48→21:19)
[2020-09-29] MEDS: lisinopriL 20 MG TABLET PO SCH (07:48)
[2020-09-29] MEDS: Aspirin Enteric Coated 81 MG Tablet PO SCH (07:48)
[2020-09-29] MEDS: Insulin LISPRO 300 UNITS/3 ML VIAL SUBQ SCH ×4 (07:49→21:09)
[2020-09-29] MEDS: Latanoprost 2.5 ML BOTTLE BOTH EYES SCH (07:51)
[2020-09-29] MEDS ORDERED: Furosemide 40 MG/4 ML VIAL IVP ONE (13:24)
[2020-09-30 03:38] LABS: BUN/Creatinine Ratio 34 (6-26); Blood Urea Nitrogen 31 mg/dL (8-23); Carbon Dioxide 28 mEq/L (23-29); Chloride 99 mEq/L (98-107); Glucose 115 mg/dL (70-105); Magnesium 1.6 mg/dL (1.6-2.6); Osmolality,Calculated 285 (280-300); Potassium 4.5 mEq/L (3.5-5.1); Sodium 134 mEq/L (136-145); eGFR For African Americans > 60 (> 60); eGFR For Non-African Americans > 60 (> 60)
[2020-09-30] MEDS: *HR* Heparin 5,000 UNIT/ML VIAL SQ SCH ×2 (06:18→16:56)
[2020-09-30] MEDS: Budesonide Neb 0.5 MG/2 ML IH SCH ×2 (07:25→20:13)
[2020-09-30] MEDS: Aspirin Enteric Coated 81 MG Tablet PO SCH (07:38)
[2020-09-30] MEDS: *HR* Metformin 500 MG TABLET PO SCH ×2 (07:38→16:56)
[2020-09-30] MEDS: allopurinoL 300 MG TABLET PO SCH (07:39)
[2020-09-30] MEDS: lisinopriL 20 MG TABLET PO SCH (07:39)
[2020-09-30] MEDS: Finasteride 5 MG TABLET PO SCH (07:39)
[2020-09-30] MEDS: Latanoprost 2.5 ML BOTTLE BOTH EYES SCH (07:41)
[2020-09-30] MEDS: Chlorhexidine Rinse 15 ML MOUTHWASH MM SCH ×2 (07:41→20:55)
[2020-09-30] MEDS: Insulin LISPRO 300 UNITS/3 ML VIAL SUBQ SCH ×4 (07:41→20:55)
[2020-10-01 04:23] LABS: BUN/Creatinine Ratio 31 (6-26); Blood Urea Nitrogen 29 mg/dL (8-23); Carbon Dioxide 26 mEq/L (23-29); Chloride 99 mEq/L (98-107); Glucose 114 mg/dL (70-105); Magnesium 1.9 mg/dL (1.6-2.6); Osmolality,Calculated 285 (280-300); Potassium 4.5 mEq/L (3.5-5.1); Sodium 134 mEq/L (136-145); eGFR For African Americans > 60 (> 60); eGFR For Non-African Americans > 60 (> 60)
[2020-10-01] MEDS: *HR* Heparin 5,000 UNIT/ML VIAL SQ SCH ×2 (06:13→16:51)
[2020-10-01] MEDS: Chlorhexidine Rinse 15 ML MOUTHWASH MM SCH ×2 (07:28→20:55)
[2020-10-01] MEDS: Finasteride 5 MG TABLET PO SCH (07:29)
[2020-10-01] MEDS: Aspirin Enteric Coated 81 MG Tablet PO SCH (07:29)
[2020-10-01] MEDS: *HR* Metformin 500 MG TABLET PO SCH ×2 (07:29→16:51)
[2020-10-01] MEDS: allopurinoL 300 MG TABLET PO SCH (07:29)
[2020-10-01] MEDS: lisinopriL 20 MG TABLET PO SCH (07:29)
[2020-10-01] MEDS: Latanoprost 2.5 ML BOTTLE BOTH EYES SCH (07:31)
[2020-10-01] MEDS: Insulin LISPRO 300 UNITS/3 ML VIAL SUBQ SCH ×4 (08:17→20:56)
[2020-10-01] MEDS: Budesonide Neb 0.5 MG/2 ML IH SCH ×2 (10:08→20:33)
[2020-10-02 01:11] LABS: Basophils # 0.1 K/mcL (0.0-0.2); Basophils % 0.9 %; Eosinophils # 1.3 K/mcL (0.0-0.6); Eosinophils % 14.8 %; Hematocrit 31.7 % (37.5-50.1); Hemoglobin 10.1 g/dL (12.9-16.9); Immature Granulocytes % 0.2 % (0-4); Lymphocytes # 2.3 K/mcL (0.6-4.6); Mean Corpuscular HGB Conc 31.9 g/dL (31.6-35.5); Mean Corpuscular Hemoglobin 28.2 pg (28.0-33.3); Mean Corpuscular Volume 88.5 fL (83.0-100.0); Mean Platelet Volume 11.3 fL (9.4-12.4); Monocytes # 0.5 K/mcL (0.0-1.3); Monocytes % 6.3 %; Neutrophils # 4.3 K/mcL (1.6-8.9); Platelet Count 369 K/mcL (140-400); Red Blood Count 3.58 M/mcL (4.19-5.50); Red Cell Distribution Width 14.7 % (11.5-14.5); Segmented Neutrophils % 50.8 %; White Blood Count 8.5 K/mcL (4.3-11.1)
[2020-10-02 01:32] LABS: BUN/Creatinine Ratio 27 (6-26); Blood Urea Nitrogen 27 mg/dL (8-23); Calcium 9.2 mg/dL (8.6-10.3); Carbon Dioxide 24 mEq/L (23-29); Chloride 101 mEq/L (98-107); Glucose 105 mg/dL (70-105); Osmolality,Calculated 283 (280-300); Potassium 4.5 mEq/L (3.5-5.1); Sodium 134 mEq/L (136-145); eGFR For African Americans > 60 (> 60); eGFR For Non-African Americans > 60 (> 60)
[2020-10-02] MEDS: *HR* Heparin 5,000 UNIT/ML VIAL SQ SCH ×2 (04:29→16:32)
[2020-10-02] MEDS: Insulin LISPRO 300 UNITS/3 ML VIAL SUBQ SCH ×4 (07:06→20:21)
[2020-10-02] MEDS: Aspirin Enteric Coated 81 MG Tablet PO SCH (07:14)
[2020-10-02] MEDS: lisinopriL 20 MG TABLET PO SCH (07:14)
[2020-10-02] MEDS: Chlorhexidine Rinse 15 ML MOUTHWASH MM SCH ×2 (07:14→20:32)
[2020-10-02] MEDS: allopurinoL 300 MG TABLET PO SCH (07:15)
[2020-10-02] MEDS: Finasteride 5 MG TABLET PO SCH (07:15)
[2020-10-02] MEDS: *HR* Metformin 500 MG TABLET PO SCH ×2 (07:15→16:32)
[2020-10-02] MEDS: Latanoprost 2.5 ML BOTTLE BOTH EYES SCH (07:17)
[2020-10-02] MEDS: Budesonide Neb 0.5 MG/2 ML IH SCH ×2 (10:06→19:37)
[2020-10-03] MEDS: *HR* Heparin 5,000 UNIT/ML VIAL SQ SCH ×2 (06:09→16:46)
[2020-10-03] MEDS: Budesonide Neb 0.5 MG/2 ML IH SCH ×2 (07:39→19:50)
[2020-10-03] MEDS: allopurinoL 300 MG TABLET PO SCH (08:47)
[2020-10-03] MEDS: Finasteride 5 MG TABLET PO SCH (08:47)
[2020-10-03] MEDS: lisinopriL 20 MG TABLET PO SCH (08:47)
[2020-10-03] MEDS: Aspirin Enteric Coated 81 MG Tablet PO SCH (08:48)
[2020-10-03] MEDS: *HR* Metformin 500 MG TABLET PO SCH ×2 (08:48→16:46)
[2020-10-03] MEDS: Latanoprost 2.5 ML BOTTLE BOTH EYES SCH (08:49)
[2020-10-03] MEDS: Chlorhexidine Rinse 15 ML MOUTHWASH MM SCH ×2 (08:49→19:43)
[2020-10-03] MEDS: Insulin LISPRO 300 UNITS/3 ML VIAL SUBQ SCH ×4 (08:49→21:04)
[2020-10-03] MEDS: *HR* OxyCODONE/APAP 5/325 TABLET PO PRN (22:12)
[2020-10-04] MEDS: *HR* Heparin 5,000 UNIT/ML VIAL SQ SCH ×2 (04:36→16:55)
[2020-10-04] MEDS: Budesonide Neb 0.5 MG/2 ML IH SCH ×2 (07:31→23:09)
[2020-10-04] MEDS: Insulin LISPRO 300 UNITS/3 ML VIAL SUBQ SCH ×4 (08:05→21:21)
[2020-10-04] MEDS: allopurinoL 300 MG TABLET PO SCH (08:06)
[2020-10-04] MEDS: Aspirin Enteric Coated 81 MG Tablet PO SCH (08:06)
[2020-10-04] MEDS: Chlorhexidine Rinse 15 ML MOUTHWASH MM SCH ×2 (08:06→20:00)
[2020-10-04] MEDS: *HR* Metformin 500 MG TABLET PO SCH ×2 (08:06→16:55)
[2020-10-04] MEDS: Finasteride 5 MG TABLET PO SCH (08:06)
[2020-10-04] MEDS: Latanoprost 2.5 ML BOTTLE BOTH EYES SCH (08:07)
[2020-10-05 01:31] LABS: Basophils # 0.1 K/mcL (0.0-0.2); Eosinophils # 1.2 K/mcL (0.0-0.6); Eosinophils % 15.9 %; Hematocrit 29.4 % (37.5-50.1); Hemoglobin 9.5 g/dL (12.9-16.9); Immature Granulocytes % 0.4 % (0-4); Lymphocytes # 1.6 K/mcL (0.6-4.6); Lymphocytes % 20.5 %; Mean Corpuscular HGB Conc 32.3 g/dL (31.6-35.5); Mean Corpuscular Hemoglobin 28.2 pg (28.0-33.3); Mean Corpuscular Volume 87.2 fL (83.0-100.0); Mean Platelet Volume 10.8 fL (9.4-12.4); Monocytes # 0.4 K/mcL (0.0-1.3); Monocytes % 4.6 %; Neutrophils # 4.5 K/mcL (1.6-8.9); Platelet Count 364 K/mcL (140-400); Red Blood Count 3.37 M/mcL (4.19-5.50); Red Cell Distribution Width 14.5 % (11.5-14.5); Segmented Neutrophils % 57.6 %; White Blood Count 7.8 K/mcL (4.3-11.1)
[2020-10-05 01:50] LABS: BUN/Creatinine Ratio 21 (6-26); Blood Urea Nitrogen 27 mg/dL (8-23); Calcium 8.9 mg/dL (8.6-10.3); Carbon Dioxide 25 mEq/L (23-29); Chloride 101 mEq/L (98-107); Glucose 107 mg/dL (70-105); Osmolality,Calculated 284 (280-300); Potassium 4.6 mEq/L (3.5-5.1); Sodium 134 mEq/L (136-145); eGFR For African Americans > 60 (> 60); eGFR For Non-African Americans 56 (> 60)
[2020-10-05] MEDS: *HR* Heparin 5,000 UNIT/ML VIAL SQ SCH ×2 (06:33→17:55)
[2020-10-05] MEDS: Insulin LISPRO 300 UNITS/3 ML VIAL SUBQ SCH ×3 (07:46→17:07)
[2020-10-05] MEDS: Budesonide Neb 0.5 MG/2 ML IH SCH ×2 (07:49→19:53)
[2020-10-05] MEDS: Finasteride 5 MG TABLET PO SCH (07:49)
[2020-10-05] MEDS: Chlorhexidine Rinse 15 ML MOUTHWASH MM SCH (07:50)
[2020-10-05] MEDS: allopurinoL 300 MG TABLET PO SCH (07:50)
[2020-10-05] MEDS: Aspirin Enteric Coated 81 MG Tablet PO SCH (07:50)
[2020-10-05] MEDS: *HR* Metformin 500 MG TABLET PO SCH ×2 (07:50→17:49)
[2020-10-05] MEDS: Latanoprost 2.5 ML BOTTLE BOTH EYES SCH (07:51)
[2020-10-05] MEDS: *HR* OxyCODONE/APAP 5/325 TABLET PO PRN (11:38)
[2020-10-05 16:49] VITALS: BP 99/60
[2020-10-05 18:26] LABS: Influenza A PCR Negative (Negative); Influenza B PCR Negative (Negative); Resp. Syncytial Virus PCR Negative (Negative)
[2020-10-05 18:49] LABS: SARS-CoV-2 by PCR (In House) Negative (Negative)
== END 2020-10-05 20:00 | DRG 234 ==
LOC: EMEROOARM 13:06 → 3BNU 13:06 → ICNU 09-25 14:24 → 2NNU 09-26 16:32
PROVIDERS: ADMIT Internal Medicine; ATTEND Internal Medicine